=== PATIENT | male | born 1970 | race Caucasian/White ===

== ENCOUNTER 2021-10-18 09:00 | Outpatient (RCR) | payer OTHER, SELFPAY ==
--- NOTE | 2021-06-24 11:06 | HP.PTREVAL ---
Dr. Abhishek aHrrington, DO, It has been my pleasure to treat YARITZA MOTA over the last 1 visits for S46.12D Strain of mus/tend rotator cuff. Please see the progress note below for an update on the physical therapy plan of care! Plan Plan: Plan to see 1-2 times per week initially to improve ROM, decrease paiun and improve sleeping Balance/Gait/Functional tests - Balance/Special Test Scores Quick DASH Score: [phone] Goals Goal 1:: Understand the healing process of the Rotator Cuff and Bicep. Goal Time Frame: 1 Week Goal 2:: Return Demo of HEP foe caregivers Goal Time Frame: 1 Week Goal 3:: Improve ROM 10% with 2 weeks Goal 4:: Progress through the strengthening process Phase 1-3 program. Goal Time Frame: 12-16 Weeks Anticipated Interventions Patient/Client Instruction: Educate patient on: Condition, Plan of Care For the Purpose of:: To decrease pain, To decrease swelling/inflammation, To increase ROM, To improve ability to perform ADL's, To increase flexibility/ROM Therapeutic Exercise to Include: Strength training, Flexibilty training, Passive ROM, Active ROM For the Purpose of:: To decrease pain, To decrease swelling/inflammation, To increase ROM Manual Therapy Techniques to Include: Massage, Passive ROM For the Purpose of:: To decrease pain, To decrease swelling/inflammation, To increase ROM TENS: Yes - Decrease Pain activate Rotator cuff IF ES: Yes For the Purpose of:: To decrease pain, To decrease swelling/inflammation, To increase ROM, To increase flexibility/ROM Please do not hesitate to contact me at [phone] by phone or if you have questions or concerns regarding this new plan of care! Sincerely, Jose David Elias, PT, TERESA, SCS, CSCS
--- NOTE | 2021-08-15 08:59 | HP.PTCOM ---
PT Communication Note 08/15/[address] Abhishek Harrington, DO , RE Vikash Jordan Dear Dr Juany Sims is just starting to turn the corner with respect to pain, sleep and ROM. Clinically, he currently has 165 shd flexion, 160 shd abd, ext rotation is 50 and internal rot is T10 vs T12. I'm going to contine u with a phase 2 program for 2 more weeks then begin a lite strengthening program. If yo have any questions or concerns, please contact me at your convenience. Sincerely Jose David Elias PT, TERESA, SCS, CSCS, Sincerely, Jose David Elias, PT, TERESA, SCS, CSCS Contact Information
== END 2021-10-18 19:00 | disposition home or self-care (01) ==
LOC: PT 09:00
PROVIDERS: Visit Provider Student in an Organized Health Care Education/Training Program
DX: S46.012D Strain of muscle(s) and tendon(s) of the rotator cuff of left shoulder, subsequent encounter (principal)
CPT/HCPCS: 97012; 97014; 97110; 97140; 97161; G0283